=== PATIENT | male | born 1945 | race Caucasian/White ===

== ENCOUNTER → 2016-09-24 | Outpatient (CLI) | payer BC, OTHER ==
[~2016-09-24] VITALS: Ht 182.9 cm; Wt 74.0 kg
[~2016-09-24] MED LIST: CARD1TAB PO; CARDUR; CIPR500T2 PO; DO NOT ADM ANY ANTICOAGULANT DRUGS XX PRN; FLUMAZENIL 0.5 MG/5 ML VIAL IV PRN; HYDR12.56 PO; INSULIN HUMAN REGULAR 1,000 UNITS/10 ML VIAL SQ PRN; LACTATED RINGER'S 1000 ML INJ 1,000 ML ONE; LACTATED RINGER'S 1000 ML IV SCH; LOSA25TA PO; METOPROLOL TARTRATE 25 MG TAB PO PRN; METR250T15 PO; MULTTAB67 PO; NALOXONE HCL 0.4 MG/ML AMP IV PRN; PANT40TA3 PO; POTA-163 PO; POTA20IN3 PO; PROPOFOL 200 MG/20 ML AMP IV ONE; SODIUM CHLORID 0.9% 500 ML IV SCH
[2016-09-24 09:00] VITALS: BP 153/83; PULSE 86; RESP 18; TEMP 98.1; O2SAT 96
[2016-09-24 12:25] VITALS: BP 141/77; PULSE 85; RESP 20; TEMP 97.8; O2SAT 95
--- NOTE | 2016-09-24 14:29 | RADRPT ---
EXAM DATE/TIME: 09/24/2016 10:41 [place] COMPARISON: No previous studies available for comparison. INDICATIONS : Dilitation FLUORO TIME: 1.22 minutes IMAGE COUNT: CONTRAST: Instilled by Ordering Physician MEDICAL HISTORY : Stenosis SURGICAL HISTORY : None. ENCOUNTER: Initial ACUITY: 1 day PAIN SCORE: Non-responsive. LOCATION: Abdomen FINDINGS: Inadequate contrast is present for diagnostic evaluation. CONCLUSION: 1. ERCP as above Mauricio Poole MD on September 24, 2016 at 14:27 Board Certified Radiologist. This report was verified electronically.
== END ==
LOC: HEND 08:22
PROVIDERS: ATTEND Internal Medicine Gastroenterology
DX: K31.5 Obstruction of duodenum (principal); K29.70 Gastritis, unspecified, without bleeding; K44.9 Diaphragmatic hernia without obstruction or gangrene; K57.30 Diverticulosis of large intestine without perforation or abscess without bleeding; K64.4 Residual hemorrhoidal skin tags; K64.8 Other hemorrhoids; D50.9 Iron deficiency anemia, unspecified; Z86.010 Personal history of colon polyps
CPT/HCPCS: 43245; 45378; 76000; 99156; 99157; C1726; J7120